=== PATIENT | male | born 1950 | race African-American/Black ===

== ENCOUNTER 2016-09-10 18:48 | Emergency (ER) | payer OTHER ==
[~2016-09-10] VITALS: Ht 180.3 cm; Wt 80.0 kg
[~2016-09-10 18:48] MED LIST: DICY1TAB26 PO; HTN; PANT20 PO; SUCR1TAB PO
[2016-09-10 19:07] VITALS: BP 137/82; PULSE 81; RESP 16; TEMP 98.7; O2SAT 96
[2016-09-10] MEDS ORDERED: SODIUM CHLOR 0.9% 1000 ML INJ 1,000 ML IV ONE (19:10)
[2016-09-10] MEDS ORDERED: SODIUM CHLORIDE 0.9% FLUSH 10 ML FLUSH IVF PRN (19:15)
[2016-09-10] MEDS ORDERED: chlordiazePOXIDE 25 MG CAP PO ONE (19:15)
--- NOTE | 2016-09-10 19:16 | PD ---
HPI Chief Complaint: Seizure Time Seen by Provider: 19:05 Travel History International Travel<30 days: No Contact w/Intl Traveler<30days: No Traveled to known affect area: No History of Present Illness HPI The patient is a 66-year-old male who presents to emergency department for new onset seizure. The patient has a history of daily alcohol use, states he drinks approximately 8-9 beers daily. The patient states he had approximately 8-9 beers yesterday, went to get his gout medicine refilled today , when he returned home he had one half up here and then apparently had a seizure while sitting in a recliner. The patient apparently had multiple seizures within a five-minute period according to EMS, however, the patient cannot recall having a seizure. He does have a history of alcohol withdrawal in the past and went through alcohol withdrawal in [place]. He denies any known history of alcohol withdrawal seizures or previous seizures. He denies any trauma to the head or neck. He denies any headache, chest pain, shortness breath, nausea, vomiting, or abdominal pain. He does complain of some left- sided rib pain as well as right knee pain which she attributes to gout. The patient's primary physician is the [place] [facility]. He denies any focal deficits. PFSH Past Medical History Gastrointestinal Disorders: Yes (HERNIA) Gout: Yes Hypertension: Yes Tetanus Vaccination: Unknown Influenza Vaccination: Yes Past Surgical History Abdominal Surgery: Yes (INGUINAL HERNIA REPAIR X 2) Social History Alcohol Use: Yes (6 PK PER DAY) Tobacco Use: Yes (ONE PK PER DAY) Substance Use: No Allergies-Medications (Allergen,Severity, Reaction): Coded Allergies: Aspirin (Verified Allergy, Mild, GI UPSET, 09/10/16) Reported Meds & Prescriptions Reported Meds & Active Scripts Active Active Prescriptions or Reported Medications Unobtainable Review of Systems Except as stated in HPI: all other systems reviewed are Neg General / Constitutional: No: Fever HENT: Positive: Lightheadedness, No: Headaches, Neck Pain Cardiovascular: Positive: Chest Pain or Discomfort (left-sided chest wall pain) Respiratory: No: Shortness of Breath Gastrointestinal: No: Nausea, Vomiting, Abdominal Pain Musculoskeletal: Positive: Pain (right knee pain he attributes to gout), No: Weakness Neurologic: Positive: Seizures (seizure prior to arrival according to EMS, denies a previous history of seizures), No: Focal Abnormalities, Headache Physical Exam Narrative GENERAL: Awake, alert, pleasant 66-year-old male who appears his stated age and is in no acute respiratory distress. SKIN: Focused skin assessment warm/dry. HEAD: Atraumatic. Normocephalic. EYES: Pupils equal and round. Pupils are 5 mm bilateral and reactive. EOMs are intact. ENT: No nasal bleeding or discharge. Mucous membranes pink and moist. NECK: Trachea midline. No JVD. CARDIOVASCULAR: Regular rate and rhythm. No murmur appreciated, heart rate in the 80s. No tenderness of the left chest wall. RESPIRATORY: No accessory muscle use. Clear to auscultation. Breath sounds equal bilaterally. GASTROINTESTINAL: Abdomen soft, non-tender, nondistended. No rebound tenderness. MUSCULOSKELETAL: Mild tenderness to the anterior aspect of the right knee, no significant effusion or deformity noted. Patella is midline. No erythema or calor noted. NEUROLOGICAL: Awake and alert. No obvious cranial nerve deficits. Motor grossly within normal limits. Normal speech. Alert and oriented 4. Follows commands without difficulty. PSYCHIATRIC: Appropriate mood and affect; insight and judgment normal. Data Data Last Documented VS Vital Signs Date Time Temp Pulse Resp B/P Pulse Ox O2 Delivery O2 Flow Rate FiO2 09/10/16 19:09 81 16 96 Room Air 09/10/16 19:07 98.7 137/82 Orders Complete Blood Count With Diff (09/10/16 19:10) Alcohol (Ethanol) (09/10/16 19:10) Electrocardiogram (09/10/16 ) Ct Brain W/O Iv Contrast(Rout) (09/10/16 ) Blood Glucose (09/10/16 19:10) Ecg Monitoring (09/10/16 19:10) Iv Access Insert/Monitor (09/10/16 19:10) Oximetry (09/10/16 19:10) Comprehensive Metabolic Panel (09/10/16 19:10) Sodium Chlor 0.9% 1000 Ml Inj (Ns 1000 M (09/10/16 19:10) Sodium Chloride 0.9% Flush (Ns Flush) (09/10/16 19:15) Chlordiazepoxide (Librium) (09/10/16 19:15) Lactic Acid (09/10/16 19:10) Labs Laboratory Tests Test 09/10/16 19:25 White Blood Count 10.6 TH/MM3 Red Blood Count 4.63 MIL/MM3 Hemoglobin 13.7 GM/DL Hematocrit 40.5 % Mean Corpuscular Volume 87.4 FL Mean Corpuscular Hemoglobin 29.6 PG Mean Corpuscular Hemoglobin 33.9 % Concent Red Cell Distribution Width 14.1 % Platelet Count 244 TH/MM3 Mean Platelet Volume 8.4 FL Neutrophils (%) (Auto) 71.4 % Lymphocytes (%) (Auto) 18.5 % Monocytes (%) (Auto) 8.6 % Eosinophils (%) (Auto) 0.9 % Basophils (%) (Auto) 0.6 % Neutrophils # (Auto) 7.6 TH/MM3 Lymphocytes # (Auto) 2.0 TH/MM3 Monocytes # (Auto) 0.9 TH/MM3 Eosinophils # (Auto) 0.1 TH/MM3 Basophils # (Auto) 0.1 TH/MM3 CBC Comment DIFF FINAL Differential Comment Sodium Level 137 MEQ/L Potassium Level 4.3 MEQ/L Chloride Level 103 MEQ/L Carbon Dioxide Level 27.1 MEQ/L Anion Gap 7 MEQ/L Blood Urea Nitrogen 19 MG/DL Creatinine 1.39 MG/DL Estimat Glomerular Filtration 62 ML/MIN Rate Random Glucose 128 MG/DL Lactic Acid Level 1.6 mmol/L Calcium Level 9.3 MG/DL Total Bilirubin 0.3 MG/DL Aspartate Amino Transf 37 U/L (AST/SGOT) Alanine Aminotransferase 23 U/L (ALT/SGPT) Alkaline Phosphatase 43 U/L Total Protein 8.6 GM/DL Albumin 3.3 GM/DL Ethyl Alcohol Level LESS THAN 3 MG/DL MDM Medical Decision Making Medical Screen Exam Complete: Yes Emergency Medical Condition: Yes Medical Record Reviewed: Yes Interpretation(s) Last Impressions Head CT 09/10/16 0000 Signed Impressions: Service Date/Time: Saturday, September 10, 2016 19:28 - CONCLUSION: 1. Small bilateral lacunar infarcts which appear chronic. 2. Mild atrophy. Jose Rascon MD Laboratory Tests Test 09/10/16 19:25 White Blood Count 10.6 TH/MM3 Red Blood Count 4.63 MIL/MM3 Hemoglobin 13.7 GM/DL Hematocrit 40.5 % Mean Corpuscular Volume 87.4 FL Mean Corpuscular Hemoglobin 29.6 PG Mean Corpuscular Hemoglobin 33.9 % Concent Red Cell Distribution Width 14.1 % Platelet Count 244 TH/MM3 Mean Platelet Volume 8.4 FL Neutrophils (%) (Auto) 71.4 % Lymphocytes (%) (Auto) 18.5 % Monocytes (%) (Auto) 8.6 % Eosinophils (%) (Auto) 0.9 % Basophils (%) (Auto) 0.6 % Neutrophils # (Auto) 7.6 TH/MM3 Lymphocytes # (Auto) 2.0 TH/MM3 Monocytes # (Auto) 0.9 TH/MM3 Eosinophils # (Auto) 0.1 TH/MM3 Basophils # (Auto) 0.1 TH/MM3 CBC Comment DIFF FINAL Differential Comment Sodium Level 137 MEQ/L Potassium Level 4.3 MEQ/L Chloride Level 103 MEQ/L Carbon Dioxide Level 27.1 MEQ/L Anion Gap 7 MEQ/L Blood Urea Nitrogen 19 MG/DL Creatinine 1.39 MG/DL Estimat Glomerular Filtration 62 ML/MIN Rate Random Glucose 128 MG/DL Lactic Acid Level 1.6 mmol/L Calcium Level 9.3 MG/DL Total Bilirubin 0.3 MG/DL Aspartate Amino Transf 37 U/L (AST/SGOT) Alanine Aminotransferase 23 U/L (ALT/SGPT) Alkaline Phosphatase 43 U/L Total Protein 8.6 GM/DL Albumin 3.3 GM/DL Ethyl Alcohol Level LESS THAN 3 MG/DL Differential Diagnosis Differential diagnosis includes alcohol withdrawal seizure, hyponatremia, hypocalcemia, hypercalcemia, intracranial hemorrhage, CVA, medication side effect. Narrative Course IV was established, labs are drawn and sent, and the patient was placed on cardiac telemetry monitoring and continuous pulse oximetry monitoring. EKG was ordered and interpreted. CT of the brain was obtained. The patient was administered IV fluids and Librium [address] reveals old infarcts, no acute findings. Sodium and calcium level is unremarkable. Lactic acid is normal. Creatinine is mildly elevated. The patient is advised to stop drinking alcohol, will be placed on Librium, is advised to follow-up with his primary physician. The patient was reassessed at 8:20 PM, he is asymptomatic. I will discharge him home on Librium, his sister will drive him home. He does not drive the vehicle. He is advised not to drink alcohol while being tapered on Librium. Patient agrees and understands. He stable for outpatient follow- up. Diagnosis Primary Impression: Alcohol withdrawal seizure Qualified Code: F10.230 - Alcohol withdrawal seizure, uncomplicated Patient Instructions: General Instructions Additional Instructions: Librium as directed. No driving or drinking alcohol while on Librium. Follow- up with your primary physician. Return if symptoms worsen or progress. Med/Other Pt SpecificInfo: Prescription(s) given Scripts Chlordiazepoxide HCl 25 Mg Capsule1 Tab PO DIRECTED #20 Prov:Miak Rice MD 09/10/16 Disposition: 01 DISCHARGE HOME Condition: Stable Maik Rice MD Sep 10, 2016 19:16
--- NOTE | 2016-09-10 19:37 | RADRPT ---
EXAM DATE/TIME: 09/10/2016 19:28 [facility] COMPARISON: No previous studies available for comparison. INDICATIONS : New onset seizures today. RADIATION DOSE: 39.30 CTDIvol (mGy) MEDICAL HISTORY : Hypertension. Hernia, inguinal. SURGICAL HISTORY : Inguinal hernia repair. ENCOUNTER: Initial ACUITY: 1 day PAIN SCALE: 0/10 LOCATION: cranial TECHNIQUE: Multiple contiguous axial images were obtained of the head. Using automated exposure control and adj ustment of the mA and/or kV according to patient size, radiation dose was kept as low as reasonably a chievable to obtain optimal diagnostic quality images. DICOM format image data is available electro nically for review and comparison. FINDINGS: CEREBRUM: The ventricles are normal for age. No evidence of midline shift, mass lesion, hemorrhage or acute in farction. Small bilateral lacunar infarcts are present which appear chronic. No extra-axial fluid col lections are seen. POSTERIOR FOSSA: The cerebellum and brainstem are intact. The 4th ventricle is midline. The cerebellopontine angle i s unremarkable. EXTRACRANIAL: The visualized portion of the orbits is intact. SKULL: The calvaria is intact. No evidence of skull fracture. CONCLUSION: 1. Small bilateral lacunar infarcts which appear chronic. 2. Mild atrophy. Jose Rascon MD on September 10, 2016 at 19:34 Board Certified Radiologist. This report was verified electronically.
[2016-09-10 19:51] LABS: AUTOMATED NEUTROPHIL # 7.6 TH/MM3 (1.8-7.7); BASOPHIL # 0.1 TH/MM3 (0-0.2); BASOPHIL % 0.6 % (0.0-2.0); EOSINOPHIL # 0.1 TH/MM3 (0-0.4); EOSINOPHIL % 0.9 % (0.0-4.0); HEMATOCRIT 40.5 % (39.0-51.0); HEMO FLAGS DIFF FINAL; LYMPH % 18.5 % (9.0-44.0); MEAN CELL VOLUME 87.4 FL (80.0-100.0); MEAN CORPUSCULAR HEMOGLOBIN 29.6 PG (27.0-34.0); MEAN CORPUSCULAR HGB CONC 33.9 % (32.0-36.0); MONO % 8.6 % (0.0-8.0); NEUT % 71.4 % (16.0-70.0); PLATELET COUNT 244 TH/MM3 (150-450); RED BLOOD COUNT 4.63 MIL/MM3 (4.50-5.90); RED CELL DISTRIBUTION WIDTH 14.1 % (11.6-17.2); WHITE BLOOD COUNT 10.6 TH/MM3 (4.0-11.0)
[2016-09-10 20:10] LABS: ALT (GPT) 23 U/L (12-78)
[2016-09-10 20:13] LABS: ALKALINE PHOSPHATASE 43 U/L (45-117); TOTAL BILIRUBIN ADULT 0.3 MG/DL (0.2-1.0)
[2016-09-10 20:16] LABS: ANION GAP 7 MEQ/L (5-15); AST (GOT) 37 U/L (15-37); BICARBONATE 27.1 MEQ/L (21.0-32.0); BLOOD UREA NITROGEN 19 MG/DL (7-18); CHLORIDE 103 MEQ/L (98-107); GLOMERULAR FILTRATION RATE 62 ML/MIN (>89); POTASSIUM 4.3 MEQ/L (3.5-5.1); SODIUM (NA) 137 MEQ/L (136-145)
[2016-09-10] MEDS ORDERED: CHLO25CA9 PO (20:25)
[2016-09-10 20:35] VITALS: BP 143/80
== END 2016-09-10 20:42 | disposition home or self-care (01) ==
LOC: NEPC 18:48
DX: F10.230 Alcohol dependence with withdrawal, uncomplicated (principal); R07.81 Pleurodynia; M25.561 Pain in right knee; I10 Essential (primary) hypertension; F17.200 Nicotine dependence, unspecified, uncomplicated; Z87.19 Personal history of other diseases of the digestive system; Z87.39 Personal history of other diseases of the musculoskeletal system and connective tissue
CPT/HCPCS: 70450; 80053; 80307; 83605; 85025; 99284; J7030